=== PATIENT | male | born 1935 | race Caucasian/White ===

== ENCOUNTER 2017-03-19 06:23 | Day surgery (SDC) | payer MEDICARE ==
[~2017-03-19] VITALS: Ht 180.3 cm; Wt 78.4 kg
[~2017-03-19 06:23] MED LIST: ASPI-555 PO; ATOR20TA PO; GEMF600T3 PO
[2017-03-19] MEDS ORDERED: SODIUM CHLORIDE 0.9% 1000ML 1,000 ML IV ONE (06:53)
[2017-03-19 07:09] VITALS: BP 136/69
[2017-03-19] MEDS ORDERED: PROPOFOL 10 MG/ML 20ML VIAL IV ONE (08:11)
== END 2017-03-19 09:00 | disposition home or self-care (01) ==
LOC: ENDO 06:23 → DAH 06:23 → ENDO 09:00
PROVIDERS: ATTEND Internal Medicine Gastroenterology
DX: K22.8 Other specified diseases of esophagus (principal); K44.9 Diaphragmatic hernia without obstruction or gangrene; K29.70 Gastritis, unspecified, without bleeding; K29.80 Duodenitis without bleeding; K21.9 Gastro-esophageal reflux disease without esophagitis; E78.5 Hyperlipidemia, unspecified
CPT/HCPCS: 43239; 88305; 88312; 88342 ×2; A4606; J2704; J7030; G9654